=== PATIENT | female | born 1990 | race Caucasian/White ===

== ENCOUNTER 2022-04-17 08:50 | Emergency (ER) | payer OTHER, SELFPAY ==
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
[2022-04-17 09:15] VITALS: BP 133/82; PULSE 81; RESP 16; TEMP 37; O2SAT 99
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
== END 2022-04-17 10:28 | disposition home or self-care (01) ==
PROVIDERS: Emergency Provider Physician Assistant
DX: S69.92XA Unspecified injury of left wrist, hand and finger(s), initial encounter (principal); V49.40XA Driver injured in collision with unspecified motor vehicles in traffic accident, initial encounter
CPT/HCPCS: 73110; 99283

== ENCOUNTER 2022-04-17 19:23 | Emergency (ER) | payer OTHER, SELFPAY ==
[2022-04-17 19:49] VITALS: BP 114/75; PULSE 91; RESP 16; TEMP 36.8; O2SAT 99
--- NOTE | 2022-04-17 20:12 | ED.WOUNDLAC ---
HPI - Wound/Laceration General Chief Complaint: Wound/Laceration Stated Complaint: lt second toe laceration Time Seen by Provider: 04/17/22 19:55 Source: patient, family, RN notes reviewed and old records reviewed Mode of arrival: ambulatory Limitations: no limitations History of Present Illness HPI narrative: 31-year-old female who presents [facility] after cutting dorsal aspect of 2nd left toe on bathtub drain at home 30 minutes prior to arrival, bleeding is controlled. Patient has full mobility of 2nd toe left foot with sensation intact. Patient reports that her tetanus shot is up to date. Onset (ago): hour(s) (this evening prior to arrival) Location: other (left dorsal 2nd toe) Treatments prior to arrival: bandage Related Data Allergies Allergy/AdvReac Type Severity Reaction Status Date / Time Penicillins Allergy Unknown Unknown Verified 04/17/22 09:12 AMOXICILLIN TRIHYDRATE Allergy Unknown Unknown Uncoded 04/17/22 09:12 Review of Systems Review of Systems: CONSTITUTIONAL: Denies fever, chills, or sweats. CARDIOVASCULAR: Denies chest pain, palpitations, or edema. RESPIRATORY: Denies cough or dyspnea. SKIN: Reports laceration to the dorsal aspect of left 2nd toe,mobility intact MUSCULOSKELETAL: Denies musculoskeletal pain NEUROLOGIC: Denies numbness, or weakness All systems reviewed & are unremarkable except as noted in HPI and below PMFSH Past Medical History Medical History (Updated 04/23/22 @ 19:33 by Amparo Reina NP) No active medical problems Surgical History Surgical History (Updated 04/17/22 @ 09:55 by Ayanna Qiu PA-C) H/O wisdom tooth extraction Social History Social History (Updated 04/17/22 @ 09:55 by Ayanna Qiu PA-C) Smoking status: Never smoker Comments At time of signature, agree with nursing past medical, surgical, social and family history. There is no relevant family history pertinent to the presenting complaint Exam Narrative: GENERAL: Well-appearing, well-nourished, and in no acute distress. HEAD: Normocephalic, atraumatic. NECK: Supple.no lymphadenopathy CHEST: Clear to auscultation. No respiratory distress.SAO2 99% on room air HEART: Regular rate and rhythm. No murmur heard. Normal peripheral pulses. EXTREMITIES: Normal range of motion. No edema. SKIN: Warm, dry, no rash. Reports 1.5 cm linear laceration to the dorsal aspect of left 2nd toe, no acute bleeding noted, nail bed not involved with no foreign body noted.mobility and sensation intact. see procedure note NEURO: No focal deficits. Alert and oriented x3. Course Course Level of Care: Express Care Visit Vital Signs Vital signs: Vital Signs Temperature 36.8 C 04/17/22 19:49 Pulse Rate 91 04/17/22 19:49 Respiratory Rate 16 04/17/22 19:49 Blood Pressure 114/75 04/17/22 19:49 Pulse Oximetry 99 04/17/22 19:49 Temperature 36.8 C 04/17/22 19:49 Pulse Rate 91 04/17/22 19:49 Respiratory Rate 16 04/17/22 19:49 Blood Pressure 114/75 04/17/22 19:49 Pulse Oximetry 99 04/17/22 19:49 Procedures Laceration left 2nd toe: Date: 04/17/22 Time: 20:05 Site: other (2nd left dorsal toe ) Side (If applicable): left Size (cm): 1.5 Description: linear Depth: simple, single layer Local Anesthetic: lidocaine 1% Amount of anesthesia used (mL): 4 Pre-repair: wound explored and irrigated extensively ====== Skin Level ====== Skin layer closed with: nylon Size (cm): 4-0 Number of sutures: 5 Technique: simple, interrupted ====== Subcutaneous Layer ====== ====== Muscle Layer ====== ====== Tendon Layer ====== Dressing: laceration to the dorsal aspect of patient's left toe explored and irrigated with skin localized with 4 ml of 1% lidocaine. wound approximated with 5 simple interrupted sutures using Ethilon #4 suture. wound cleansed after completion of suturing an
== END 2022-04-17 20:51 | disposition home or self-care (01) ==
PROVIDERS: Emergency Provider Registered Nurse
DX: S91.115A Laceration without foreign body of left lesser toe(s) without damage to nail, initial encounter (principal); W45.8XXA Other foreign body or object entering through skin, initial encounter
CPT/HCPCS: 12001; 99213; G0463

== ENCOUNTER 2024-10-09 08:31 | Emergency (ER) | payer OTHER, SELFPAY ==
[2024-10-09 08:45] VITALS: BP 150/85; PULSE 98; RESP 16; TEMP 36.8; O2SAT 100
--- NOTE | 2024-10-09 13:51 | ED_ITS ---
HPI - Skin/Abscess/Foreign Bdy General Chief complaint: Skin/Abscess/Foreign Body Stated complaint: RASH Time Seen by Provider: 10/09/24 08:45 Source: patient and RN notes reviewed Mode of arrival: ambulatory Limitations: no limitations History of Present Illness HPI narrative: 33-year-old female presents [facility] complaining of rash her upper chest and around her neck. Patient stated started approximately to 3 days ago. Patient 1st thought it was a allergic reaction to clindamycin it showed up day 9 of her antibiotic treatment she was being treated for a sinus infection. Patient states the rash is tender she has noticed papular pustules her chest around her neck. Patient denies any fevers, body aches, chills, or any other symptoms. Patient tried antifungal cream yesterday with no relief. Patient also tried antibacterial soap without any relief. Related Data Allergies Allergy/AdvReac Type Severity Reaction Status Date / Time Penicillins Allergy Unknown Unknown Verified 10/09/24 08:48 AMOXICILLIN TRIHYDRATE Allergy Unknown Unknown Uncoded 10/09/24 08:48 Review of Systems Review of Systems: CONSTITUTIONAL: Denies fever, chills, or sweats. EYES: Denies visual changes, redness, or discharge. ENT: Denies rhinorrhea, congestion, sore throat, or otalgia. CARDIOVASCULAR: Denies chest pain, palpitations, or edema. RESPIRATORY: Denies cough or dyspnea. GASTROINTESTINAL: Denies abdominal pain, nausea, vomiting, or diarrhea. GENITOURINARY: Denies dysuria or hematuria. SKIN: Positive for rash. Negative for itching. MUSCULOSKELETAL: Denies back pain, joint pain, or myalgia. NEUROLOGIC: Denies headache, numbness, or weakness. PSYCHIATRIC: Denies anxiety or depression. All other systems reviewed are negative, except as documented in HPI. [facility] Past Medical History Medical History No active medical problems Surgical History Surgical History H/O wisdom tooth extraction Social History Social History Smoking status: Never smoker Comments At the time of my signature, I reviewed and agree with the nursing past medical, surgical, social, and family history. There is no relevant family history pertinent to the patient complaint. Exam Narrative: GENERAL: This is a well-nourished, well-developed adult, in no apparent distress. They are non ill-appearing, nontoxic appearing. HEAD: normocephalic, atraumatic. EYES: Sclera clear/white. Conjunctiva normal. Vision is grossly intact. Extraocular movements intact EARS: External ears normal, Hearing grossly intact. NOSE: External nose normal THROAT: Mucous membranes moist, NECK: Neck supple CARDIOVASCULAR: Regular rate and rhythm RESPIRATORY: Respiratory rate normal, respiratory effort nonlabored, no respiratory distress SKIN: Erythematous follicular, papular, pustular rash scattered throughout the patient's upper chest neck and upper back. No surrounding cellulitis, no exudate no induration, no area of fluctuance. Mild tenderness to palpation to pustules. NEURO: awake, alert, and oriented to person, place and time. There were no obvious focal neurologic abnormalities. EXTREMITIES: No joint tenderness, effusion, or edema noted. Course Course Emergency Course: Portions of this record may have been created with voice recognition software Level of Care: Express Care Visit Vital Signs Vital signs: Vital Signs Temperature 98.2 F 10/09/24 08:45 Pulse Rate 98 10/09/24 08:45 Respiratory Rate 16 10/09/24 08:45 Blood Pressure 150/85 H 10/09/24 08:45 Pulse Oximetry 100 10/09/24 08:45 Temperature 98.2 F 10/09/24 08:45 Pulse Rate 98 10/09/24 08:45 Respiratory Rate 16 10/09/24 08:45 Blood Pressure 150/85 H 10/09/24 08:45 Pulse Oximetry 100 10/09/24 08:45 Reviewed MDM - Skin/Abscess/Foreign Bdy MDM Narrative Medical decision making narrative: Appears patient likely has folliculitis. It is probable it may be fungal in origin since patient recently took an antibiotic. Will go ahead and treat her with fluconazole tablets and also prescribe mupirocin ointment if that treatment is refractory. Discussed physical exam findings. Advised supportive measures and signs/symptoms to go to the ER. Pt is appropriate for outpt treatment and f/u. Differential Diagnosis Differential diagnosis: Likely abscess of skin or subcutaneous tissue, dermatophytosis, cellulitis, impetigo, contact dermatitis and other (Folliculitis) Critical Care Time Critical Care Time Critical Care Time: No Discharge Plan Discharge Clinical Impression: Folliculitis Patient Disposition: Home Condition: Stable Instructions: Folliculitis (ED) Additional Instructions: Take fluconazole as directed. Will take 1 dose today and take another dose in 1 week. After each dose wait approximately 1-2 hours then exercise to help get the medication to the skin faster. Wash your skin with daily with mild soap and water avoid antibacterial soap as this may be a fungal infection. If this is not improve on treatment with fluconazole you may use the mupirocin as directed. Please follow-up with PCP in 3-5 days. If Symptoms worsen, you developed worsening swelling, redness, pain, fevers, or any other concerns please go to the ER immediately. Patient Language: Turkmen Prescriptions: New fluconazole 150 mg tablet 150 mg PO WEEKLY 14 Days Qty: 2 0RF mupirocin calcium 2 % cream 1 applic topical BID 7 Days Qty: 30 0RF Follow-up/Referrals: PHYSICIAN,[employer] EXECUTIVE [Primary Care Provider] - Time of Disposition: 09:10
== END 2024-10-09 09:13 | disposition home or self-care (01) ==
DX: L73.9 Follicular disorder, unspecified (principal)
CPT/HCPCS: 99213; G0463